=== PATIENT | male | born 1970 | race Caucasian/White ===

== ENCOUNTER 2020-04-23 20:18 | Observation (INO) | payer BC ==
--- NOTE | 2020-04-23 21:04 | RAD ---
EXAM: CHEST ONE VIEW: 04/23/20 HISTORY: Palpitations. FINDINGS: Heart size is within normal limits. The lungs are clear. IMPRESSION: No acute intrathoracic disease. POS: RRE
[2020-04-23 22:30] LABS: Troponin I Less than 0.010 ng/mL (< 0.028)
[2020-04-23] MEDS ORDERED: Enoxaparin Sodium 100 MG/ML SYRINGE ONE ×2 (22:58→23:04)
[2020-04-23] MEDS ORDERED: Enoxaparin Sodium 30 MG/0.3 ML SYRINGE ONE (23:04)
[2020-04-23 23:23] VITALS: BMI 37.6
[2020-04-24] MEDS ORDERED: Diltiazem HCl 125 MG, Admixture Fee 1 EACH in Sodium Chloride 0.9% 100 ML IVPB SCH (00:30)
[2020-04-24 01:19] LABS: Troponin I 0.016 ng/mL (< 0.028)
[2020-04-24] MEDS ORDERED: Diltiazem 125 MG/25 ML ONE (02:47)
[2020-04-24 03:36] LABS: SARS-CoV-2 MS2 Positive; SARS-CoV-2 N Gene Negative; SARS-CoV-2 S Gene Negative; SARS-CoV-2 by NAA Not Detected (NotDetected); SARS-CoV-2 orf1ab Negative
--- NOTE | 2020-04-24 09:26 | PDOC.CONS ---
- Consultation Encounter Date: 04/24/20 Encounter Time: 09:26 REASON FOR CONSULTATION: Atrial flutter with RVR HISTORY OF PRESENT ILLNESS: The patient is a pleasant 49 years old gentleman who has significant past medical history of diabetes type 2, hypertension, atrial fib, who was transferred from [facility] ED for atrial fib with RVR. Patient presented to ED with complaint of palpitation. He denies any chest pain or significant dyspnea. Patient report that he has been diagnosed with paroxysmal atrial fib, and this occur about 4 times since then. He has been adherent to his p.o. Cardizem. He is not taking any anticoagulation, unclear why. Any rate, patient was started on Cardizem drip and subsequently transferred to [facility] in [place] for further evaluation. Upon my evaluation, patient has been converted back into normal sinus rhythm. He completely asymptomatic. His Cardizem drip has been discontinued. He again, had no chest pain, or dyspnea. Patient would like to be discharged home. Patient stated that he was seen by Dr. Chang, but last seen by him was about 4 years ago. I have encouraged him to follow-up with his PCP, as well as cardiology Dr. Chang, he will need an outpatient stress test in the future ROS: Complete review of systems have been assessed and discussed with the patient. Negative and positive pertinent symptoms noted in the HPI; ALL other systems are reviewed and negative. Past medical history: Atrial fib, diabetes type 2, hypertension Past surgical history: None Family history: Negative for CAD Allergies bacitracin [From Neosporin ([id number])] Allergy (Verified 04/23/20 23:51) ibuprofen Allergy (Verified 04/23/20 23:45) naproxen Allergy (Verified 04/23/20 23:51) neomycin [From Neosporin ([id number])] Allergy (Verified 04/23/20 23:51) polymyxin B [From Neosporin ([id number])] Allergy (Verified 04/23/20 23:51) Home medications: Medication Instructions Recorded Confirmed Type Apixaban [Eliquis] 5 mg PO BID #60 tablet 04/24/20 Rx Atorvastatin Calcium 20 mg PO DAILY 04/24/20 04/24/20 History Diltiazem HCl [Diltiazem 24Hr ER 240 mg PO DAILY 04/24/20 04/24/20 History (Xr)] PARoxetine HCl 30 mg PO DAILY 04/24/20 04/24/20 History Pioglitazone HCl [Actos] 30 mg PO DAILY 04/24/20 04/24/20 History metFORMIN [Glucophage] 500 mg PO BID-WM 04/24/20 04/24/20 History PHYSICAL EXAM: General Appearance: Alert, oriented, resting comfortably, no apparent distress, well developed/nourished. HEENT: Normocephalic/atraumatic, moist mucous membrane, normal ENT inspection, normal tones. PERRLA, no scleral icterus, normal conjunctiva Neck: Supple, normal inspection, no JVD Respiratory: Lungs are clear bilaterally, normal breath sounds, no accessory muscle use Cardiovascular: Regular rate, regular rhythm, no murmur, no rubs Abdomen: Soft, nontender, nondistended, normal bowel sounds, no organomegaly, no guarding no rebound Back: Normal inspection, no CVA tenderness Extremities: No clubbing, no cyanosis, no edema Psych/Mental Status: Normal affect, speech, non-pressured, AAO x 3 Neurologic: AAO x 3; Cranial nerves II - XII intact. CN II-XII are intact. Skin: Warm/Dry, Normal Color, no rashes LAB DATA: Laboratory Results - last 24 hr 04/24/20 00:45: Troponin I 0.016 04/23/20 21:33: Troponin I Less than 0.010 04/23/20 21:00: SARS-CoV-2 (PCR) Not Detected ASSESSMENTS/PLAN: Afib with RVR The patient is a pleasant 49 years old gentleman who has significant past medical histories of paroxysmal atrial flutter, hypertension, diabetes type 2, who was transferred from [facility], for atrial flutter with RVR. Patient was started on Cardizem drip, he spontaneously converted back into normal sinus rhythm when I evaluated him. His Cardizem drip has been di scontinued. He completely asymptomatic. He denies any chest pain or dyspnea. Patient reported that he had this problem in the past. He is not on AC at present. Recommend to continue his Cardizem CD 240 mg, and start Eliquis for stroke prophylaxis. Possible side effect discussed with the patient detail. I also recommend him to follow-up with PCP in 1 to 2-week, and follow-up with his primary retail leader, Dr. Chang, for further ischemic work-up as outpatient including stress test for risk stratification. His troponins has been negative. Patient with full understanding agreeable with the plan. Pt is stable to discharge home at this point.
[2020-04-24 09:59] VITALS: BP 132/88; TEMP 98.1
== END 2020-04-24 10:12 | disposition home or self-care (01) ==
LOC: ERS 20:18 → ERHOLD 21:22
PROVIDERS: ADMIT Family Medicine; ATTEND Family Medicine
DX: I48.92 Unspecified atrial flutter (principal); I48.91 Unspecified atrial fibrillation; E11.9 Type 2 diabetes mellitus without complications; I10 Essential (primary) hypertension; Z79.01 Long term (current) use of anticoagulants; Z79.84 Long term (current) use of oral hypoglycemic drugs; Z79.899 Other long term (current) drug therapy; Z88.1 Allergy status to other antibiotic agents; Z88.6 Allergy status to analgesic agent; Z20.828 Contact with and (suspected) exposure to other viral communicable diseases
CPT/HCPCS: 36415; 71045; 84484; 87635; 94760; 96365; 96366; 96372; 96376; G0378; J1650; U0003

== ENCOUNTER 2020-12-14 13:37 | Inpatient (IN) | payer BC ==
[2020-12-14 21:51] VITALS: BMI 35.4
[2020-12-14] MEDS ORDERED: Sodium Chloride 0.9% 1,000 ML IV SCH (23:45)
[2020-12-14] MEDS ORDERED: Acetaminophen 325 MG TAB PO PRN (23:50)
[2020-12-14] MEDS ORDERED: Ondansetron PF 4 MG/2 ML Vial IVP PRN (23:50)
[2020-12-14] MEDS ORDERED: Dextrose 5% in Water 1,000 ML IV PRN (23:53)
[2020-12-14] MEDS ORDERED: Dextrose 50% Abboject 50 ML SYRINGE SLOW IVP PRN (23:53)
[2020-12-15] MEDS: HumaLOG 300 UNITS/3 ML VIAL SC PRN ×5 (01:12→20:47)
[2020-12-15] MEDS ORDERED: Enoxaparin Sodium 40 MG/0.4 ML SYRINGE SC SCH (02:00)
[2020-12-15 06:42] LABS: #Lymphocytes 1.1 thou/uL (1.20-3.40); #Monocytes 0.6 thou/uL (0.11-0.59); #Neutrophils 13.2 thou/uL (1.40-6.50); %Basophils 0.1 % (0.0-1.0); %Eosinophils 0.2 % (0.0-10.0); %Lymphocytes 7.5 % (21.0-51.0); %Monocytes 3.7 % (0.0-10.0); %Neutrophils 88.6 % (42.0-75.0); Hemoglobin 13.5 g/dL (14.0-18.0); Mean Corpuscular HGB CONC 31.7 g/dL (32.0-36.0); Mean Corpuscular Hemoglobin 30.2 pg (27.0-31.0); Mean Corpuscular Volume 95.1 fL (78.0-98.0); Mean Platelet Volume 7.1 fL (7.4-10.4); Platelet Count 364 thou/uL (130-400); RBC Distribution Width 12.5 % (11.5-14.5); Red Blood Cell (RBC) Count 4.49 mill/uL (4.70-6.10); White Blood Cell (WBC) Count 14.9 thou/uL (4.8-10.8)
[2020-12-15 06:59] LABS: Anion Gap 15 mmol/L (10-20); BUN (Urea Nitrogen) 25 mg/dL (8.4-25.7); Calc. Creatinine Clearance 88 mL/min (70-130); Carbon Dioxide 23 mmol/L (22-29); Chloride 101 mmol/L (98-107); Glucose 281 mg/dL (70-105); Sodium 135 mmol/L (136-145)
[2020-12-15 07:02] LABS: ALT (SGPT) 20 U/L (8-55); AST (SGOT) 24 U/L (5-34); Albumin 3.7 g/dL (3.5-5.0); Alkaline Phosphatase 78 U/L (40-110); Bilirubin, Direct 0.3 mg/dL (0.1-0.3); Bilirubin, Total 0.5 mg/dL (0.2-1.2); Protein, Total 7.7 g/dL (6.0-8.3)
[2020-12-15] MEDS ORDERED: Sodium Chloride 0.65% Nasal 44 ML BOT EA NARE PRN (07:47)
[2020-12-15] MEDS ORDERED: Bisacodyl 5 MG TAB PO PRN (07:47)
[2020-12-15] MEDS ORDERED: Senokot S 8.6-50 MG TAB PO PRN (07:47)
[2020-12-15] MEDS ORDERED: Ondansetron ODT 4 MG TAB SL PRN (07:47)
[2020-12-15] MEDS ORDERED: Cepastat Lozenges 1 LOZ PO PRN (07:47)
[2020-12-15] MEDS ORDERED: HYDROcodone/Acetaminophen 5/325 mg Tablet PO PRN (07:47)
[2020-12-15] MEDS ORDERED: Loratadine 10 MG TAB PO PRN (07:47)
[2020-12-15] MEDS ORDERED: Zolpidem Tartrate 5 MG TAB PO PRN (07:47)
[2020-12-15] MEDS ORDERED: GUAIFENESIN SF SOLN 200 MG/10 ML UDCUP PO PRN (07:47)
[2020-12-15] MEDS ORDERED: Calcium Carbonate 500 MG ChewTAB PO PRN (07:47)
[2020-12-15] MEDS ORDERED: hydrALAZINE 20 MG/ML VIAL SLOW IVP PRN (07:47)
[2020-12-15] MEDS ORDERED: Hydrocerin (Eucerin) Cream 120 gm Jar TOP PRN (07:47)
[2020-12-15] MEDS ORDERED: Loperamide HCl 2 MG CAP PO PRN (07:47)
[2020-12-15] MEDS ORDERED: Artificial Tear Sol 15 ML BOT EA EYE PRN (07:47)
[2020-12-15] MEDS ORDERED: Albuterol 200 PUFF (6.7GM INHALER) INH PRN (08:24)
[2020-12-15] MEDS: Aspirin 325 mg Enteric Coated Tablet PO SCH (08:50)
[2020-12-15] MEDS: Zinc Sulfate 220 MG CAP PO SCH (08:50)
[2020-12-15] MEDS: Pioglitazone HCl 15 MG TAB PO SCH (08:50)
[2020-12-15] MEDS: PARoxetine 20 MG TAB PO SCH ×2 (08:51→17:49)
[2020-12-15] MEDS: Ascorbic Acid 500 mg Chewable Tablet PO SCH (08:52)
[2020-12-15] MEDS: Cholecalciferol 1,000 UNITS (25 MCG) TAB PO SCH (08:52)
[2020-12-15] MEDS: Atorvastatin Calcium 20 MG TAB PO SCH (08:52)
[2020-12-15] MEDS: Famotidine 20 MG TAB PO SCH ×2 (08:53→20:44)
[2020-12-15] MEDS: Dexamethasone 4 mg/ml Vial SLOW IVP SCH (08:53)
[2020-12-15] MEDS: Enoxaparin Sodium 40 MG/0.4 ML SYRINGE SC SCH ×2 (08:53→20:46)
[2020-12-15] MEDS: NPH, Human Insulin Isophane 300 UNIT/3 ML VIAL SC SCH ×2 (08:54→20:46)
[2020-12-15] MEDS ORDERED: REMDESIVIR 200 MG in Sodium Chloride 0.9% 250 ML 210 ML IV SCH (12:00)
[2020-12-15] MEDS: Benzonatate 100 MG CAP PO PRN (20:44)
[2020-12-15] MEDS: Latanoprost 0.005% Ophth Soln 2.5 ml Bottle EA EYE SCH (20:45)
[2020-12-16] MEDS: HumaLOG 300 UNITS/3 ML VIAL SC PRN ×4 (05:10→20:56)
[2020-12-16] MEDS: Benzonatate 100 MG CAP PO PRN ×2 (05:15→21:03)
[2020-12-16 06:42] LABS: #Lymphocytes 1.1 thou/uL (1.20-3.40); #Monocytes 0.7 thou/uL (0.11-0.59); %Basophils 0.2 % (0.0-1.0); %Eosinophils 0.1 % (0.0-10.0); %Lymphocytes 7.1 % (21.0-51.0); %Monocytes 4.7 % (0.0-10.0); %Neutrophils 87.9 % (42.0-75.0); Hemoglobin 13.8 g/dL (14.0-18.0); Mean Corpuscular Hemoglobin 32.6 pg (27.0-31.0); Mean Corpuscular Volume 95.8 fL (78.0-98.0); Platelet Count 446 thou/uL (130-400); RBC Distribution Width 12.4 % (11.5-14.5); Red Blood Cell (RBC) Count 4.24 mill/uL (4.70-6.10); White Blood Cell (WBC) Count 14.7 thou/uL (4.8-10.8)
[2020-12-16 07:07] LABS: Anion Gap 12 mmol/L (10-20); BUN (Urea Nitrogen) 26 mg/dL (8.4-25.7); Calc. Creatinine Clearance 108 mL/min (70-130); Calcium 8.8 mg/dL (7.8-10.44); Carbon Dioxide 24 mmol/L (22-29); Chloride 103 mmol/L (98-107); Glucose 284 mg/dL (70-105); Potassium 4.1 mmol/L (3.5-5.1); Sodium 135 mmol/L (136-145)
[2020-12-16 07:12] LABS: ALT (SGPT) 30 U/L (8-55); AST (SGOT) 33 U/L (5-34); Albumin 3.4 g/dL (3.5-5.0); Alkaline Phosphatase 82 U/L (40-110); Bilirubin, Direct 0.3 mg/dL (0.1-0.3); Bilirubin, Total 0.5 mg/dL (0.2-1.2); Protein, Total 7.1 g/dL (6.0-8.3)
[2020-12-16] MEDS: Pioglitazone HCl 15 MG TAB PO SCH (08:13)
[2020-12-16] MEDS: Ascorbic Acid 500 mg Chewable Tablet PO SCH (08:13)
[2020-12-16] MEDS: Aspirin 325 mg Enteric Coated Tablet PO SCH (08:13)
[2020-12-16] MEDS: Famotidine 20 MG TAB PO SCH ×2 (08:14→21:03)
[2020-12-16] MEDS: Zinc Sulfate 220 MG CAP PO SCH (08:14)
[2020-12-16] MEDS: PARoxetine 20 MG TAB PO SCH ×2 (08:14→17:26)
[2020-12-16] MEDS: Atorvastatin Calcium 20 MG TAB PO SCH (08:15)
[2020-12-16] MEDS: Cholecalciferol 1,000 UNITS (25 MCG) TAB PO SCH (08:15)
[2020-12-16] MEDS: Dexamethasone 4 mg/ml Vial SLOW IVP SCH (08:16)
[2020-12-16] MEDS: Enoxaparin Sodium 40 MG/0.4 ML SYRINGE SC SCH ×2 (08:17→21:03)
[2020-12-16] MEDS: NPH, Human Insulin Isophane 300 UNIT/3 ML VIAL SC SCH ×3 (08:18→20:55)
[2020-12-16] MEDS: REMDESIVIR 100 MG in Sodium Chloride 0.9% 250 ML 230 ML IV SCH (12:34)
[2020-12-16] MEDS: Latanoprost 0.005% Ophth Soln 2.5 ml Bottle EA EYE SCH (21:04)
[2020-12-17] MEDS: HumaLOG 300 UNITS/3 ML VIAL SC PRN ×4 (05:31→20:33)
[2020-12-17 05:57] LABS: Hemoglobin 14.4 g/dL (14.0-18.0); Mean Corpuscular HGB CONC 32.3 g/dL (32.0-36.0); Mean Corpuscular Hemoglobin 30.9 pg (27.0-31.0); Mean Corpuscular Volume 95.6 fL (78.0-98.0); Mean Platelet Volume 6.7 fL (7.4-10.4); Platelet Count 545 thou/uL (130-400); RBC Distribution Width 12.5 % (11.5-14.5); Red Blood Cell (RBC) Count 4.65 mill/uL (4.70-6.10); White Blood Cell (WBC) Count 13.5 thou/uL (4.8-10.8)
[2020-12-17 06:14] LABS: Anion Gap 12 mmol/L (10-20); BUN (Urea Nitrogen) 25 mg/dL (8.4-25.7); Calc. Creatinine Clearance 113 mL/min (70-130); Calcium 8.9 mg/dL (7.8-10.44); Carbon Dioxide 25 mmol/L (22-29); Chloride 104 mmol/L (98-107); Glucose 257 mg/dL (70-105); Potassium 4.3 mmol/L (3.5-5.1); Sodium 137 mmol/L (136-145)
[2020-12-17 06:21] LABS: ALT (SGPT) 30 U/L (8-55); AST (SGOT) 22 U/L (5-34); Albumin 3.2 g/dL (3.5-5.0); Alkaline Phosphatase 88 U/L (40-110); Bilirubin, Direct 0.3 mg/dL (0.1-0.3); Bilirubin, Total 0.6 mg/dL (0.2-1.2); Protein, Total 7.1 g/dL (6.0-8.3)
[2020-12-17 08:17] LABS: Band 9 % (5-11); Lymphocytes 7 % (21-51); MDiff Complete? YES; Metamyelocyte 1 % (0-0); Monocytes 7 % (0-10); Myelocyte 1 % (0-0); Neutrophil 74 % (42-75); Platelet Morphology Comment Appears Increased; Reactive Lymphocytes 1 % (0-10)
[2020-12-17] MEDS: Atorvastatin Calcium 20 MG TAB PO SCH (08:31)
[2020-12-17] MEDS: Aspirin 325 mg Enteric Coated Tablet PO SCH (08:31)
[2020-12-17] MEDS: Zinc Sulfate 220 MG CAP PO SCH (08:31)
[2020-12-17] MEDS: Ascorbic Acid 500 mg Chewable Tablet PO SCH (08:31)
[2020-12-17] MEDS: Pioglitazone HCl 15 MG TAB PO SCH (08:31)
[2020-12-17] MEDS: Dexamethasone 4 mg/ml Vial SLOW IVP SCH (08:32)
[2020-12-17] MEDS: Enoxaparin Sodium 40 MG/0.4 ML SYRINGE SC SCH ×2 (08:32→20:32)
[2020-12-17] MEDS: Cholecalciferol 1,000 UNITS (25 MCG) TAB PO SCH (08:32)
[2020-12-17] MEDS: PARoxetine 20 MG TAB PO SCH ×2 (08:32→17:27)
[2020-12-17] MEDS: Famotidine 20 MG TAB PO SCH ×2 (08:32→20:32)
[2020-12-17] MEDS: NPH, Human Insulin Isophane 300 UNIT/3 ML VIAL SC SCH (08:33)
[2020-12-17] MEDS ORDERED: NPH, Human Insulin Isophane 300 UNIT/3 ML VIAL SC SCH (10:01)
[2020-12-17] MEDS: Benzonatate 100 MG CAP PO PRN (10:20)
[2020-12-17] MEDS: REMDESIVIR 100 MG in Sodium Chloride 0.9% 250 ML 230 ML IV SCH (13:44)
[2020-12-17] MEDS: Latanoprost 0.005% Ophth Soln 2.5 ml Bottle EA EYE SCH (20:32)
[2020-12-18] MEDS: HumaLOG 300 UNITS/3 ML VIAL SC PRN ×3 (05:04→20:54)
[2020-12-18 07:17] LABS: Anion Gap 13 mmol/L (10-20); BUN (Urea Nitrogen) 25 mg/dL (8.4-25.7); Calc. Creatinine Clearance 118 mL/min (70-130); Carbon Dioxide 24 mmol/L (22-29); Chloride 104 mmol/L (98-107); Potassium 4.7 mmol/L (3.5-5.1); Sodium 136 mmol/L (136-145)
[2020-12-18 07:18] LABS: Glucose 272 mg/dL (70-105)
[2020-12-18 08:13] LABS: Band 10 % (5-11); Hemoglobin 14.1 g/dL (14.0-18.0); Lymphocytes 19 % (21-51); MDiff Complete? YES; Mean Corpuscular HGB CONC 32.1 g/dL (32.0-36.0); Mean Corpuscular Hemoglobin 30.6 pg (27.0-31.0); Mean Corpuscular Volume 95.3 fL (78.0-98.0); Mean Platelet Volume 6.7 fL (7.4-10.4); Metamyelocyte 3 % (0-0); Monocytes 1 % (0-10); Neutrophil 67 % (42-75); Platelet Count 605 thou/uL (130-400); Platelet Morphology Comment Appears Increased; RBC Distribution Width 12.3 % (11.5-14.5); Red Blood Cell (RBC) Count 4.59 mill/uL (4.70-6.10)
[2020-12-18] MEDS: Aspirin 325 mg Enteric Coated Tablet PO SCH (08:20)
[2020-12-18] MEDS: Ascorbic Acid 500 mg Chewable Tablet PO SCH (08:21)
[2020-12-18] MEDS: Famotidine 20 MG TAB PO SCH ×2 (08:21→20:54)
[2020-12-18] MEDS: Zinc Sulfate 220 MG CAP PO SCH (08:21)
[2020-12-18] MEDS: PARoxetine 20 MG TAB PO SCH ×2 (08:21→18:04)
[2020-12-18] MEDS: Atorvastatin Calcium 20 MG TAB PO SCH (08:21)
[2020-12-18] MEDS: Cholecalciferol 1,000 UNITS (25 MCG) TAB PO SCH (08:21)
[2020-12-18] MEDS: Enoxaparin Sodium 40 MG/0.4 ML SYRINGE SC SCH ×2 (08:22→20:54)
[2020-12-18] MEDS: Dexamethasone 4 mg/ml Vial SLOW IVP SCH (08:22)
[2020-12-18] MEDS: Pioglitazone HCl 15 MG TAB PO SCH (08:23)
[2020-12-18] MEDS: Lisinopril 5 MG TAB PO SCH ×2 (08:27→20:54)
[2020-12-18] MEDS: metFORMIN 500 MG TAB PO SCH ×2 (08:27→18:04)
[2020-12-18] MEDS: NPH, Human Insulin Isophane 300 UNIT/3 ML VIAL SC SCH ×2 (08:28→20:53)
[2020-12-18] MEDS ORDERED: Azithromycin 250 MG TAB PO SCH (10:15)
[2020-12-18] MEDS: REMDESIVIR 100 MG in Sodium Chloride 0.9% 250 ML 230 ML IV SCH (12:37)
[2020-12-18] MEDS: Latanoprost 0.005% Ophth Soln 2.5 ml Bottle EA EYE SCH (20:53)
[2020-12-19] MEDS: HumaLOG 300 UNITS/3 ML VIAL SC PRN ×4 (05:13→20:47)
[2020-12-19] MEDS: Ascorbic Acid 500 mg Chewable Tablet PO SCH (08:16)
[2020-12-19] MEDS: Aspirin 325 mg Enteric Coated Tablet PO SCH (08:16)
[2020-12-19] MEDS: metFORMIN 500 MG TAB PO SCH ×2 (08:16→16:54)
[2020-12-19] MEDS: Azithromycin 250 MG TAB PO SCH (08:17)
[2020-12-19] MEDS: Atorvastatin Calcium 20 MG TAB PO SCH (08:17)
[2020-12-19] MEDS: Lisinopril 5 MG TAB PO SCH ×2 (08:17→20:46)
[2020-12-19] MEDS: Enoxaparin Sodium 40 MG/0.4 ML SYRINGE SC SCH ×2 (08:17→20:46)
[2020-12-19] MEDS: Zinc Sulfate 220 MG CAP PO SCH (08:17)
[2020-12-19] MEDS: Cholecalciferol 1,000 UNITS (25 MCG) TAB PO SCH (08:17)
[2020-12-19] MEDS: PARoxetine 20 MG TAB PO SCH (08:18)
[2020-12-19] MEDS: Famotidine 20 MG TAB PO SCH ×2 (08:19→20:46)
[2020-12-19] MEDS: Pioglitazone HCl 15 MG TAB PO SCH (08:19)
[2020-12-19] MEDS: Dexamethasone 4 mg/ml Vial SLOW IVP SCH (08:19)
[2020-12-19] MEDS: NPH, Human Insulin Isophane 300 UNIT/3 ML VIAL SC SCH ×2 (08:21→20:47)
[2020-12-19] MEDS: REMDESIVIR 100 MG in Sodium Chloride 0.9% 250 ML 230 ML IV SCH (13:34)
[2020-12-19] MEDS: Latanoprost 0.005% Ophth Soln 2.5 ml Bottle EA EYE SCH (20:48)
[2020-12-20] MEDS: HumaLOG 300 UNITS/3 ML VIAL SC PRN ×2 (06:49→11:12)
[2020-12-20 07:23] VITALS: BP 127/85; TEMP 98
[2020-12-20] MEDS: Aspirin 325 mg Enteric Coated Tablet PO SCH (08:37)
[2020-12-20] MEDS: Zinc Sulfate 220 MG CAP PO SCH (08:37)
[2020-12-20] MEDS: PARoxetine 20 MG TAB PO SCH (08:37)
[2020-12-20] MEDS: Atorvastatin Calcium 20 MG TAB PO SCH (08:37)
[2020-12-20] MEDS: Pioglitazone HCl 15 MG TAB PO SCH (08:37)
[2020-12-20] MEDS: Ascorbic Acid 500 mg Chewable Tablet PO SCH (08:37)
[2020-12-20] MEDS: Lisinopril 5 MG TAB PO SCH (08:38)
[2020-12-20] MEDS: metFORMIN 500 MG TAB PO SCH (08:38)
[2020-12-20] MEDS: Cholecalciferol 1,000 UNITS (25 MCG) TAB PO SCH (08:38)
[2020-12-20] MEDS: Azithromycin 250 MG TAB PO SCH (08:38)
[2020-12-20] MEDS: Dexamethasone 4 mg/ml Vial SLOW IVP SCH (08:38)
[2020-12-20] MEDS: Famotidine 20 MG TAB PO SCH (08:38)
[2020-12-20] MEDS: NPH, Human Insulin Isophane 300 UNIT/3 ML VIAL SC SCH (08:39)
[2020-12-20] MEDS: Enoxaparin Sodium 40 MG/0.4 ML SYRINGE SC SCH (08:39)
== END 2020-12-20 14:09 | disposition home or self-care (01) | DRG 871 ==
LOC: T4-B 20:51
PROVIDERS: ADMIT Internal Medicine; ATTEND Internal Medicine
PROC: 8E0ZXY6 Isolation (ICD-10-PCS; 2020-12-14)
PROC: XW033E5 Introduction of Remdesivir Anti-infective into Peripheral Vein, Percutaneous Approach, New Technology Group 5 (ICD-10-PCS; principal; 2020-12-15)
DX: A41.89 Other specified sepsis (principal); U07.1 COVID-19; J12.82 Pneumonia due to coronavirus disease 2019; J96.01 Acute respiratory failure with hypoxia; N17.9 Acute kidney failure, unspecified; R65.20 Severe sepsis without septic shock; E11.65 Type 2 diabetes mellitus with hyperglycemia; E78.5 Hyperlipidemia, unspecified; I48.0 Paroxysmal atrial fibrillation; F32.9 Major depressive disorder, single episode, unspecified; E66.9 Obesity, unspecified; H40.9 Unspecified glaucoma; F41.9 Anxiety disorder, unspecified; G47.33 Obstructive sleep apnea (adult) (pediatric); T38.0X5A Adverse effect of glucocorticoids and synthetic analogues, initial encounter; Z88.1 Allergy status to other antibiotic agents; Z88.5 Allergy status to narcotic agent; Z88.0 Allergy status to penicillin; Z88.8 Allergy status to other drugs, medicaments and biological substances; Z79.84 Long term (current) use of oral hypoglycemic drugs; Z79.899 Other long term (current) drug therapy; Z82.49 Family history of ischemic heart disease and other diseases of the circulatory system; Z83.3 Family history of diabetes mellitus; Z68.35 Body mass index [BMI] 35.0-35.9, adult; Z87.891 Personal history of nicotine dependence; Z99.89 Dependence on other enabling machines and devices
CPT/HCPCS: 36415; 36416; 80048; 80076; 82728; 85025; 85379; 86140; J1100; J1650; J1815; J7050